=== PATIENT | male | born 1980 | race Caucasian/White ===

== ENCOUNTER 2020-09-18 08:21 | Inpatient (IN) | payer OTHER ==
[~2020-09-18] VITALS: Ht 172.7 cm; Wt 84.2 kg
--- NOTE | 2020-09-18 08:42 | NUR ---
EKD DONE IN TRIAGE.
--- NOTE | 2020-09-18 08:50 | NUR ---
PT BIB SELF VIA POV. PER PT HE HAS HAD LEFT ARM TINGLING/NUMBNESS AND LEFT LEG "NOT WORKING VERY WELL" SINCE LAST NIGHT. PATIENT DENIES CHEST PAIN, SOME NAUSEA THIS MORNING, NO VOMITING. PT REPORTS NO MEDICAL HX. PT RESTING IN [facility], MONITORING IN PLACE, EKG DONE IN TRIAGE, NADN AT THIS TIME, TM.
--- NOTE | 2020-09-18 08:56 | NUR ---
REPORT TO [facility].
[2020-09-18] MEDS ORDERED: SODIUM CHLORIDE FLUSH 10ML SYR IVF ONE (09:00)
--- NOTE | 2020-09-18 09:00 | NUR ---
assumed care of pt. report from [facility] pt here for S/O numbness to L side of body that started at about 2200 last nocs. pt reports that he is having numbness as well. no recent injury. no hx of blood clot. +smoker. pt is hypertensive. no facial droop. no difficulty breathing speaking or swallowing. pt denies LOVING but states that he feel dizzy Dr. Sharma at bedside for eval
--- NOTE | 2020-09-18 09:14 | NUR ---
CXR has been to bedside. pt updated on POC
--- NOTE | 2020-09-18 09:17 | NUR ---
pt to CT scan
[2020-09-18 09:22] LABS: BASOPHILS % (AUTO) 1 % (0-1); EOSINOPHILS % (AUTO) 2 % (1-7); LYMPHOCYTES % (AUTO) 17 % (22-44); MD NO; MEAN CORPUSCULAR HEMOGLOBIN 34.9 pg (27.5-34.5); MEAN PLATELET VOLUME 8.8 fL (7.4-10.4); MONOCYTES % (AUTO) 7 % (2-9); NEUTROPHILS % (AUTO) 75 % (42-75); PLATELET COUNT 190 x10^3/uL (130-400); RED BLOOD COUNT 4.72 x10^6/uL (4.38-5.82); RED CELL DISTRIBUTION WIDTH 12.9 % (9.4-14.8)
[2020-09-18 09:30] LABS: ALANINE AMINOTRANSFERASE 54 U/L (12-78); ANION GAP 5 mmol/L (5-15); CALCIUM 9.3 mg/dL (8.5-10.1); CHLORIDE 108 mmol/L (98-107); CREATININE 1.15 mg/dL (0.7-1.3); INTERNATIONAL NORMALIZED RATIO 1.07 (0.93-1.1); PROTHROMBIN TIME 11.4 Seconds (9.6-11.5)
[2020-09-18 09:32] LABS: ALKALINE PHOSPHATASE 91 U/L (45-117); BILIRUBIN,TOTAL 0.6 mg/dL (0.2-1.0); TOTAL PROTEIN 7.7 g/dL (6.4-8.2)
[2020-09-18] MEDS ORDERED: ASPIRIN 81 MG TABLET CHEW PO ONE (10:00)
[2020-09-18] MEDS ORDERED: ASPIRIN 81 MG TABLET CHEW ONE (10:08)
--- NOTE | 2020-09-18 10:11 | NUR ---
pt medicated per order pt to be admitted. hospitalist at bedside for eval
--- NOTE | 2020-09-18 10:24 | NUR ---
[facility] no new c/o. resting on gurney in position of comfort awaiting bed assignment
[2020-09-18] MEDS ORDERED: ACETAMINOPHEN 325 MG TABLET PO PRN (10:30)
[2020-09-18 10:43] LABS: LDL/HDL RATIO 2.4 (0.5-3.0)
--- NOTE | 2020-09-18 11:10 | NUR ---
no changes. pt resting in position of comfort. no apparent distress. no new c/o
--- NOTE | 2020-09-18 11:40 | NUR ---
pt in RAD
--- NOTE | 2020-09-18 11:55 | NUR ---
pt still in RAD
--- NOTE | 2020-09-18 12:51 | NUR ---
bed assignment has been recieved pt updated on POC attempting to call report
--- NOTE | 2020-09-18 12:54 | NUR ---
report called to Ta[facility]
--- NOTE | 2020-09-18 13:05 | NUR ---
pt trasnported to floor via gurney by tech
[2020-09-18] MEDS: THIAMINE 100MG TABLET PO SCH (13:24)
[2020-09-18] MEDS: FOLIC ACID 1 MG TABLET PO SCH (13:24)
[2020-09-18] MEDS: SODIUM CHLORIDE 0.9% 1,000 ML IV SCH (13:25)
[2020-09-18 13:30] VITALS: BP 159/94
[2020-09-18 19:45] VITALS: BP 150/81
[2020-09-19] MEDS: SODIUM CHLORIDE 0.9% 1,000 ML IV SCH (01:45)
[2020-09-19 01:48] VITALS: BP 149/92
[2020-09-19 05:24] LABS: CHLORIDE 111 mmol/L (98-107)
[2020-09-19 05:27] LABS: BASOPHILS % (AUTO) 1 % (0-1); EOSINOPHILS % (AUTO) 2 % (1-7); LYMPHOCYTES % (AUTO) 28 % (22-44); MEAN CORPUSCULAR HEMOGLOBIN 35.3 pg (27.5-34.5); MEAN CORPUSCULAR HGB CONC 35.6 g/dL (33.2-36.2); MONOCYTES % (AUTO) 8 % (2-9); NEUTROPHILS % (AUTO) 61 % (42-75); PLATELET COUNT 173 x10^3/uL (130-400); RED BLOOD COUNT 4.41 x10^6/uL (4.38-5.82); RED CELL DISTRIBUTION WIDTH 12.8 % (9.4-14.8)
[2020-09-19 05:37] LABS: ALANINE AMINOTRANSFERASE 49 U/L (12-78); ALBUMIN 3.2 g/dL (3.4-5.0); ALKALINE PHOSPHATASE 67 U/L (45-117); ANION GAP 6 mmol/L (5-15); BILIRUBIN,TOTAL 1.1 mg/dL (0.2-1.0); CALCIUM 8.2 mg/dL (8.5-10.1); CHOL/HDL RATIO 4.2; CHOLESTEROL, TOTAL 127 mg/dL (140-239); CREATININE 0.97 mg/dL (0.7-1.3); HDL CHOL % 24 % (26-37); HDL CHOLESTEROL (DIRECT) 30 mg/dL (40-60); LDL CHOLESTEROL,CALCULATED 77 mg/dL (54-169); LDL/HDL RATIO 2.6 (0.5-3.0); TOTAL PROTEIN 6.6 g/dL (6.4-8.2); TRIGLYCERIDES 100 mg/dL (50-200); VLDL CHOLESTEROL 20 mg/dL (0-25)
[2020-09-19 05:44] LABS: MD NO
[2020-09-19 06:50] VITALS: BP 150/92
[2020-09-19] MEDS: THIAMINE 100MG TABLET PO SCH (08:57)
[2020-09-19] MEDS: FOLIC ACID 1 MG TABLET PO SCH (08:57)
[2020-09-19 12:14] VITALS: BP 168/102
[2020-09-19] MEDS ORDERED: ATOR40TA78 PO (17:19)
[2020-09-19] MEDS ORDERED: ASPI-963 PO (17:19)
[2020-09-19] MEDS ORDERED: ATORVASTATIN 40 MG TABLET PO SCH (21:00)
== END 2020-09-19 17:35 | disposition left against medical advice (07) | DRG 66 ==
LOC: ED 09:56 → 4WST 10:17
PROVIDERS: ADMIT Hospitalist; ATTEND Hospitalist
DX: I63.411 Cerebral infarction due to embolism of right middle cerebral artery (principal); D75.89 Other specified diseases of blood and blood-forming organs; F10.20 Alcohol dependence, uncomplicated; F12.90 Cannabis use, unspecified, uncomplicated; F17.200 Nicotine dependence, unspecified, uncomplicated; Z66 Do not resuscitate; R26.2 Difficulty in walking, not elsewhere classified; Z79.82 Long term (current) use of aspirin; Z83.3 Family history of diabetes mellitus
CPT/HCPCS: 36415; 70450; 70551; 71045; 80053; 80061; 80320; 82607; 83036; 83735; 84100; 84443; 85025; 85610; 85730; 93005; 93306; 93880; 99291; G0378; G0480; J7030